=== PATIENT | male | born 2000 | race Two or more races ===

== ENCOUNTER 2023-05-31 01:43 | Emergency (ER) | payer OTHER ==
[2023-05-31 01:51] VITALS: BMI 20.9
[2023-05-31] MEDS ORDERED: SODIUM CHLORIDE 0.9% 500 ML INFUS.BAG IV ONE (01:56)
[2023-05-31] MEDS ORDERED: ACETAMINOPHEN 1000 MG/100 ML BAG IVPB ONE (01:56)
[2023-05-31] MEDS ORDERED: ONDANSETRON 4 MG/2 ML VIAL IVPUSH ONE (01:57)
[2023-05-31] MEDS ORDERED: ACETAMINOPHEN INJECTION 100 ML IVPB ONE (02:44)
[2023-05-31] MEDS ORDERED: ONDANSETRON 4 MG/2 ML VIAL ONE (02:45)
[2023-05-31 03:54] LABS: POTASSIUM 4.4 mmol/L (3.5-5.1)
[2023-05-31 03:57] LABS: ALBUMIN 5.2 g/dl (3.4-5.0); BLOOD UREA NITROGEN 15.3 mg/dL (7-18); CALCIUM 10.8 mg/dL (8.5-10.1)
[2023-05-31 04:01] LABS: TOT PROT 8.2 g/dl (6.4-8.2)
[2023-05-31 04:02] LABS: BILIRUBIN,TOTAL 1.3 mg/dL (0.2-1)
[2023-05-31 05:41] VITALS: BP 107/72; PULSE 60; RESP 18; TEMP 98.7
[2023-05-31 05:54] LABS: BASO % 0.3 % (0-2.0); HEMATOCRIT 42.5 % (35.4-49); HEMOGLOBIN 13.9 GM/dL (11.7-16.9); LYMPH % 7.4 % (8-40); MCH 29.8 pg (25.7-33.7); MCHC 32.7 g/dl (32.0-35.9); MEAN PLT VOLUME 8.5 fl (7.5-11.1); MONO % 3.3 % (3.8-10.2); PLATELET COUNT 336 10^3/uL (134-434); RBC 4.67 M/mm3 (4.00-5.60); RDW 13.5 % (11.9-15.9); WHITE BLOOD COUNT 14.6 K/mm3 (4.0-10.0)
[2023-05-31] MEDS ORDERED: FAMOTIDINE 20 MG/50 ML IVPB 20 MG/50 ML MG IVPB ONE (07:30)
== END 2023-05-31 06:32 | disposition home or self-care (01) ==
LOC: JER 01:43
PROC: 3E033GC Introduction of Other Therapeutic Substance into Peripheral Vein, Percutaneous Approach (ICD-10-PCS; principal; 2023-05-31)
PROC: 3E033GC Introduction of Other Therapeutic Substance into Peripheral Vein, Percutaneous Approach (ICD-10-PCS; 2023-05-31)
PROC: 3E033GC Introduction of Other Therapeutic Substance into Peripheral Vein, Percutaneous Approach (ICD-10-PCS; 2023-05-31)
DX: R10.13 Epigastric pain (principal); R11.2 Nausea with vomiting, unspecified
CPT/HCPCS: 36415; 80053; 83690; 83735; 85025; 93005; 93010; 99284-25